=== PATIENT | male | born 1965 | race Caucasian/White ===

== ENCOUNTER 2021-07-24 18:46 | Emergency (ER) | payer OTHER ==
[2021-07-24] MEDS ORDERED: Ondansetron PF 4 MG/2 ML Vial ONE (20:10)
[2021-07-24 20:47] LABS: ALT (SGPT) 60 U/L (8-55); AST (SGOT) 69 U/L (5-34); Albumin 4.6 g/dL (3.5-5.0); Alkaline Phosphatase 132 U/L (40-110); Anion Gap 21 mmol/L (10-20); BUN (Urea Nitrogen) 16 mg/dL (8.4-25.7); Bilirubin, Total 1.4 mg/dL (0.2-1.2); Calc. Creatinine Clearance 0 mL/min (70-130); Calcium 9.5 mg/dL (7.8-10.44); Carbon Dioxide 21 mmol/L (22-29); Chloride 98 mmol/L (98-107); Glucose 113 mg/dL (70-105); Lipase 230 U/L (8-78); Magnesium 1.9 mg/dL (1.6-2.6); Protein, Total 7.6 g/dL (6.0-8.3); Sodium 136 mmol/L (136-145)
[2021-07-24] MEDS ORDERED: Acetaminophen 500 MG TAB ONE (20:55)
[2021-07-24 20:59] LABS: Band 39 % (5-11); Hemoglobin 16.6 g/dL (14.0-18.0); Lymphocytes 9 % (21-51); MDiff Complete? YES; Mean Corpuscular HGB CONC 32.2 g/dL (32.0-36.0); Mean Corpuscular Hemoglobin 27.9 pg (27.0-31.0); Mean Corpuscular Volume 86.5 fL (78.0-98.0); Mean Platelet Volume 7.4 fL (7.4-10.4); Monocytes 4 % (0-10); Neutrophil 48 % (42-75); Platelet Count 227 thou/uL (130-400); RBC Distribution Width 12.1 % (11.5-14.5); Red Blood Cell (RBC) Count 5.94 mill/uL (4.70-6.10)
[2021-07-24] MEDS ORDERED: Ibuprofen 800 MG TAB ONE (21:28)
[2021-07-24 22:21] LABS: Bilirubin Moderate (Negative); Blood, Urine Negative (Negative); Clarity Clear (Clear); Glucose, Urine (Dipstick) 100 mg/dL (Negative); Ketone, Urine 40 mg/dL (Negative); Leukocyte Negative (Negative); Nitrite Negative (Negative); Protein, Urine (Dipstick) 100 mg/dL (Neg-Trace); Specific Gravity, Urine 1.025 (1.005-1.030); Urobilinogen > or = 8.0 mg/dL (Less than 2)
[2021-07-24 22:29] LABS: Bacteria/HPF None Seen HPF (None Seen); Mucous/LPF 3+ LPF (<2+); RBC/HPF 0-3 HPF (0-3); Squamous Epithelial 0-3 HPF (0-3); Transitional Epithelial 0-3 HPF (None Seen)
[2021-07-24] MEDS ORDERED: Cefepime 2 GM VIAL ONE (23:20)
== END 2021-07-25 00:13 | disposition short-term general hospital (02) ==
LOC: MADERS 18:46
DX: K85.90 Acute pancreatitis without necrosis or infection, unspecified (principal); D72.819 Decreased white blood cell count, unspecified; R16.1 Splenomegaly, not elsewhere classified; R19.7 Diarrhea, unspecified
CPT/HCPCS: 71046; 74176; 80053; 81003; 81015; 83605; 83690; 83735; 84484; 85025; 87040; 96361; 96365; 96367; 96375; J0692; J2405; J3370